=== PATIENT | female | born 1990 | race Two or more races ===

== ENCOUNTER → 2016-06-07 | Outpatient (CLI) | payer BC ==
[2016-06-07 16:01] LABS: ABSOLUTE EOSINOPHILS # (AUTO) 0.1 10^3/uL (0.0-0.6); ABSOLUTE LYMPHOCYTES (AUTO) 2.5 10^3/uL (0.5-4.7); ABSOLUTE MONOCYTES (AUTO) 0.5 10^3/uL (0.1-1.4); ABSOLUTE NEUT (AUTO) 4.5 10^3/uL (1.7-8.2); BASOPHILS % (AUTO) 0.5 % (0-2); EOSINOPHILS % (AUTO) 1.6 % (0-6); HEMATOCRIT 37.8 % (36.0-47.0); HEMOGLOBIN 12.6 g/dL (12.0-15.5); LYMPHOCYTES % (AUTO) 32.5 % (13-45); MEAN CORPUSCULAR HEMOGLOBIN 29.1 pg (27.0-33.4); MEAN CORPUSCULAR HGB CONC 33.3 g/dL (32.0-36.0); MEAN CORPUSCULAR VOLUME 87 fl (80-97); MONOCYTES % (AUTO) 6.2 % (3-13); RED BLOOD COUNT 4.33 10^6/uL (3.72-5.28); SEGMENTED NEUTROPHILS % (AUTO) 59.2 % (42-78); WHITE BLOOD COUNT 7.6 10^3/uL (4.0-10.5)
[2016-06-07 16:22] LABS: ANION GAP 11 (5-19); BLOOD UREA NITROGEN 17 mg/dL (7-20); CALCIUM 9.7 mg/dL (8.4-10.2); CARBON DIOXIDE 25 mmol/L (22-30); CHLORIDE 105 mmol/L (98-107); CREATININE RESULT 0.79 mg/dL (0.52-1.25); GLUCOSE 94 mg/dL (75-110); POTASSIUM 4.3 mmol/L (3.6-5.0); SODIUM 140.7 mmol/L (137-145)
[2016-06-09 07:41] LABS: DEHYDROEPIANDROSTERONE SULFATE 198.6 ug/dL (110.0-431.7)
== END ==
LOC: OD 14:08
PROVIDERS: ATTEND Obstetrics & Gynecology
DX: E28.2 Polycystic ovarian syndrome (principal); Z13.29 Encounter for screening for other suspected endocrine disorder; Z13.0 Encounter for screening for diseases of the blood and blood-forming organs and certain disorders involving the immune mechanism; Z13.1 Encounter for screening for diabetes mellitus
CPT/HCPCS: 36415; 80048; 82627; 83036; 84146; 84403; 84443; 85025

== ENCOUNTER → 2016-07-31 | Outpatient (CLI) | payer BC ==
[2016-08-02 11:56] LABS: PROGESTERONE 12.9 ng/mL (.)
== END ==
LOC: OD 13:06
PROVIDERS: ATTEND Obstetrics & Gynecology
DX: N97.0 Female infertility associated with anovulation (principal)
CPT/HCPCS: 36415; 84144; 84403

== ENCOUNTER → 2016-10-03 | Outpatient (CLI) | payer BC ==
[2016-10-03 11:48] LABS: ABSOLUTE EOSINOPHILS # (AUTO) 0.1 10^3/uL (0.0-0.6); ABSOLUTE LYMPHOCYTES (AUTO) 1.9 10^3/uL (0.5-4.7); ABSOLUTE MONOCYTES (AUTO) 0.5 10^3/uL (0.1-1.4); ABSOLUTE NEUT (AUTO) 7.2 10^3/uL (1.7-8.2); BASOPHILS % (AUTO) 0.1 % (0-2); HEMATOCRIT 37.2 % (36.0-47.0); HEMOGLOBIN 12.5 g/dL (12.0-15.5); HGB HCT DIFFERENCE 0.3; LYMPHOCYTES % (AUTO) 19.4 % (13-45); MEAN CORPUSCULAR HEMOGLOBIN 29.8 pg (27.0-33.4); MEAN CORPUSCULAR HGB CONC 33.6 g/dL (32.0-36.0); MEAN CORPUSCULAR VOLUME 89 fl (80-97); MONOCYTES % (AUTO) 5.3 % (3-13); RED CELL DISTRIBUTION WIDTH 13.2 % (11.5-14.0); SEGMENTED NEUTROPHILS % (AUTO) 74.2 % (42-78); WHITE BLOOD COUNT 9.8 10^3/uL (4.0-10.5)
[2016-10-03 13:12] LABS: ADD HIVPANEL? NO; HIV (1 AND 2) ANTIBODY NEGATIVE (NEGATIVE)
[2016-10-04 06:39] LABS: HEPATITIS C VIRUS AB <0.1 s/co ratio (0.0-0.9)
[2016-10-05 12:38] LABS: HGB A 96.5 % (94.0-98.0); HGB A2 2.7 % (0.7-3.1); HGB SOLUBILITY RESULT Negative (Negative)
[2016-10-07 12:37] LABS: CHLAMYDIA PREQUOT NAA Negative (Negative)
[2016-10-08 07:18] LABS: GONOCOCCUS PREQUOT (CYTO) NAA Negative (Negative)
== END ==
LOC: OD 10:07
PROVIDERS: ATTEND Advanced Practice Midwife
DX: Z34.01 Encounter for supervision of normal first pregnancy, first trimester (principal)
CPT/HCPCS: 36415; 83020; 84443; 85025; 86592; 86701; 86762; 86803; 86804; 86850; 86900; 86901; 87086; 87340; 87491; 87591; 88142

== ENCOUNTER → 2016-10-31 | Outpatient (CLI) | payer BC ==
[2016-11-09 14:56] LABS: DSR (BY AGE) 1 IN 998 (.); DSR (SECOND TRIMESTER) 1 IN 9196 (.); GESTATIONAL AGE BASED ON. As provided (.); HCG MOM 1 0.53 (.); HCG VALUE 1 23563 mIU/mL (.); OSBR RISK (1 IN) 10000 (.); T18RISK Not increased (.); UE3 MOM AFP 1.37 (.); UE3 VALUE AFP 1.19 ng/mL (.)
== END ==
LOC: OD 09:10
PROVIDERS: ATTEND Midwife
DX: Z36 Encounter for antenatal screening of mother (principal)
CPT/HCPCS: 36415; 82105; 82677; 84702; 86336

== ENCOUNTER → 2016-12-05 | Outpatient (CLI) | payer BC ==
--- NOTE | 2016-12-05 13:22 | WOMENS IMAGING REPORT ---
EXAM DESCRIPTION: U/S BREAST UNILAT LIMITED COMPLETED DATE/TIME: 12/05/2016 8:16 am REASON FOR STUDY: LUMP;N63 N63 UNSPECIFIED LUMP IN BREAST COMPARISON: Left breast ultrasound 03/28/2015, Left breast ultrasound 11/18/2015 TECHNIQUE: Real-time and static grayscale imaging performed of the left breast targeted to the area of clinical concern, along the inframammary fold. Selected color Doppler images recorded. LIMITATIONS: None. FINDINGS: Patient has left breast pain inferiorly, along the inframammary fold. Ultrasound of this area demonstrates no discrete cystic or solid lesions. No worrisome acoustic absorption. No focal f indings. Remainder of the left breast was not imaged IMPRESSION: Unremarkable ultrasound left breast inframammary fold. BIRAD: 1 Negative. RECOMMENDATION: RECOMMENDED FOLLOW-UP: Follow-up as clinically indicated. COMMENT: The [employer] (ACR) has developed recommendations for screening MRI of the breasts in certain patient populations, to be used in conjunction with mammography. Breast MRI s urveillance may be appropriate for women with more than 20% lifetime risk of developing breast cancer as determined by genetic testing, significant family history of the disease, or history of mantle r adiation for Hodgkins Disease. ACR Practice Guidelines 2008. TECHNICAL DOCUMENTATION: JOB ID: [id number] [employer]- All Rights Reserved
== END ==
LOC: WI 07:18
PROVIDERS: ATTEND Surgery
DX: N63 Unspecified lump in breast (principal)
CPT/HCPCS: 76642

== ENCOUNTER → 2016-12-21 | Outpatient (CLI) | payer BC ==
--- NOTE | 2016-12-21 10:40 | WOMENS IMAGING REPORT ---
EXAM DESCRIPTION: U/S BREAST UNILATERAL, COMPL COMPLETED DATE/TIME: 12/21/2016 8:35 am REASON FOR STUDY: UNSPECIFIED LUMP IN BREAST N63 UNSPECIFIED LUMP IN BREAST COMPARISON: 11/18/2015 TECHNIQUE: Real-time and static grayscale imaging performed of the right breast targeted to the area of clinical/mammographic concern. Selected color Doppler images recorded. LIMITATIONS: None. FINDINGS: Well-circumscribed hypoechoic nodules are stable or either decreased in size. No suspicio us findings. IMPRESSION: Benign fibroadenomas. BIRAD: 2 Benign findings. RECOMMENDATION: RECOMMENDED FOLLOW-UP: Per referring surgeon. COMMENT: The [employer] (ACR) has developed recommendations for screening MRI of the breasts in certain patient populations, to be used in conjunction with mammography. Breast MRI s urveillance may be appropriate for women with more than 20% lifetime risk of developing breast cancer as determined by genetic testing, significant family history of the disease, or history of mantle r adiation for Hodgkins Disease. ACR Practice Guidelines 2008. TECHNICAL DOCUMENTATION: JOB ID: [id number] [employer]- All Rights Reserved
--- NOTE | 2016-12-21 10:42 | WOMENS IMAGING REPORT ---
EXAM DESCRIPTION: U/S BREAST UNILATERAL, COMPL COMPLETED DATE/TIME: 12/21/2016 8:35 am REASON FOR STUDY: UNSPECIFIED LUMP IN BREAST N63 UNSPECIFIED LUMP IN BREAST COMPARISON: 11/08/2015 TECHNIQUE: Real-time and static grayscale imaging performed of the left breast targeted to the area of clinical/mammographic concern. Selected color Doppler images recorded. LIMITATIONS: None. FINDINGS: Well-circumscribed hypoechoic nodule in the 4-5 o'clock position measuring about 10 x 5 x 6 mm. Incomplete echogenic capsule. Much smaller similar-appearing lesion at 9 o'clock IMPRESSION: Benign fibroadenomas. BIRAD: 2 Benign findings. RECOMMENDATION: RECOMMENDED FOLLOW-UP: Follow-up as clinically indicated. COMMENT: The [employer] (ACR) has developed recommendations for screening MRI of the breasts in certain patient populations, to be used in conjunction with mammography. Breast MRI s urveillance may be appropriate for women with more than 20% lifetime risk of developing breast cancer as determined by genetic testing, significant family history of the disease, or history of mantle r adiation for Hodgkins Disease. ACR Practice Guidelines 2008. TECHNICAL DOCUMENTATION: JOB ID: [id number] [employer]- All Rights Reserved
== END ==
LOC: WI 07:39
PROVIDERS: ATTEND Surgery
DX: N63 Unspecified lump in breast (principal)
CPT/HCPCS: 76641

== ENCOUNTER 2017-01-21 13:28 | Outpatient (CLI) | payer BC ==
[2017-01-21 14:42] LABS: AMORPHOUS SEDIMENT,URINE TRACE /HPF; APPEARANCE,URINE CLOUDY; BILIRUBIN,URINE NEGATIVE (NEGATIVE); GLUCOSE, URINE 50 mg/dL (NEGATIVE); KETONES,URINE NEGATIVE (NEGATIVE); LEUKOCYTE ESTERASE,URINE NEGATIVE (NEGATIVE); NITRITE,URINE NEGATIVE (NEGATIVE); PROTEIN,URINE NEGATIVE (NEGATIVE); URINE SPECIFIC GRAVITY 1.013; UROBILINOGEN,URINE NEGATIVE mg/dL (<2.0)
[2017-01-21 14:52] LABS: URINE BARBITURATES SCREEN NEGATIVE; URINE METHADONE SCREEN NEGATIVE; URINE OPIATES LOW NEGATIVE; URINE PHENCYCLIDINE SCREEN NEGATIVE
--- NOTE | 2017-01-21 14:55 | RADIOLOGY REPORT (SQ) ---
EXAM DESCRIPTION: U/S OB LIMITED COMPLETED DATE/TIME: 01/21/2017 2:33 pm REASON FOR STUDY: R/O labor ( check for placenta placement) COMPARISON: None. TECHNIQUE: Limited transvaginal and transabdominal grayscale ultrasound for evaluation of specific r equested obstetrical parameters. LIMITATIONS: None. FINDINGS: CERVICAL LENGTH: 4.9 cm Closed. JENS: 16.9 cm. FHR: 149 beats per minute. PRESENTATION: Cephalic. OTHER: No other significant findings. IMPRESSION: LIMITED OBSTETRICAL ULTRASOUND WITH MEASURED PARAMETERS DELINEATED ABOVE. Trimester of : Third trimester - 28 weeks to delivery. TECHNICAL DOCUMENTATION: JOB ID: [id number] [employer]- All Rights Reserved
== END 2017-01-21 14:57 | disposition home or self-care (01) ==
LOC: LC 13:28
PROVIDERS: ATTEND Obstetrics & Gynecology
PROC: 4A1HXCZ Monitoring of Products of Conception, Cardiac Rate, External Approach (ICD-10-PCS; principal; 2017-01-21)
DX: O47.02 False labor before 37 completed weeks of gestation, second trimester (principal); Z3A.27 27 weeks gestation of pregnancy
CPT/HCPCS: 76815; 80307; 81001

== ENCOUNTER 2017-04-24 22:01 | Inpatient (IN) | payer BC ==
[2017-04-24 22:44] LABS: HEMATOCRIT 40.2 % (36.0-47.0); HEMOGLOBIN 13.6 g/dL (12.0-15.5); MEAN CORPUSCULAR HEMOGLOBIN 30.6 pg (27.0-33.4); MEAN CORPUSCULAR HGB CONC 33.9 g/dL (32.0-36.0); MEAN CORPUSCULAR VOLUME 90 fl (80-97); PLATELET COUNT 186 10^3/uL (150-450); RED BLOOD COUNT 4.46 10^6/uL (3.72-5.28); RED CELL DISTRIBUTION WIDTH 13.7 % (11.5-14.0); WHITE BLOOD COUNT 11.5 10^3/uL (4.0-10.5)
[2017-04-24] MEDS ORDERED: RINGERS SOLUTION,LACTATED 1,000 ML IV PRN (22:48)
[2017-04-24] MEDS ORDERED: DINOPROSTONE 10 MG VAGINAL INSERT.SR PV PRN (22:48)
[2017-04-24 23:01] LABS: APPEARANCE,URINE SLIGHTLY-CLOUDY; BILIRUBIN,URINE NEGATIVE (NEGATIVE); COLOR,URINE YELLOW; GLUCOSE, URINE NEGATIVE (NEGATIVE); KETONES,URINE NEGATIVE (NEGATIVE); LEUKOCYTE ESTERASE,URINE SMALL (NEGATIVE); NITRITE,URINE NEGATIVE (NEGATIVE); PROTEIN,URINE NEGATIVE (NEGATIVE); URINE SPECIFIC GRAVITY 1.013; UROBILINOGEN,URINE NEGATIVE mg/dL (<2.0)
[2017-04-24 23:16] LABS: URINE AMPHETAMINES SCREEN NEGATIVE; URINE BARBITURATES SCREEN NEGATIVE; URINE BENZODIAZEPINES SCREEN NEGATIVE; URINE COCAINE SCREEN NEGATIVE; URINE MARIJUANA (THC) SCREEN NEGATIVE; URINE METHADONE SCREEN NEGATIVE; URINE PHENCYCLIDINE SCREEN NEGATIVE
--- NOTE | 2017-04-25 01:04 | RADIOLOGY REPORT (SQ) ---
EXAM DESCRIPTION: U/S PROFILE W/O STRESS CLINICAL HISTORY: 26 years, Female, BPP non reactive NST COMPARISON: None. LIMITATIONS: None. FINDINGS: breathing: Zero posture and tone: Two movement: Two Qualitative amniotic fluid: Two JENS: 13.9 cm FHR: 153 bpm Presentation: Vertex IMPRESSION: Total score: Six of eight 2010 [facility] [employer]- All Rights Reserved
[2017-04-25] MEDS ORDERED: DINOPROSTONE 10 MG VAGINAL INSERT.SR ONE (01:48)
[2017-04-25] MEDS ORDERED: EPHEDRINE SULFATE INJ 50 MG/1 ML AMPULE ONE (08:37)
[2017-04-25] MEDS ORDERED: FENTANYL/BUPIVACAINE/NS/PF 200 MCG/100 ML RTUINJ EPI ONE (08:37)
[2017-04-25] MEDS ORDERED: BUPIVACAINE HCL 0.25 % INJ/PF (2.5 MG/1 ML) 30 ML VIAL ONE (08:37)
[2017-04-25] MEDS ORDERED: OXYTOCIN/NORMAL SALINE 20 UNIT/1,000 ML RTUINJ IV PRN (13:17)
--- NOTE | 2017-04-25 13:17 | L&D Progress Notes ---
PROGRESS NOTES Datetime Report Generated by CPN: 04/25/2017 13:17 PROGRESS NOTE Impression: Reassuring Heart Rate Procedures: Artificial ROM; Sterile Vag Exam Plan: Induction Vital Signs : Reviewed Comment: Much more comfortable with epidiural AROM, mec fluid CAT 2 fhts resolved to Cat 1 with nursing interventions Start pitocin per protocol VAGINAL EXAM Dilatation: 4 Dilatation: 0 Effacement: 90 Station: 0 Contractions: 2-4 Contractions: irreg. MEMBRANES Membranes: Ruptured Membranes: Intact Amniotic Fluid Color: Meconium, Particulate FETUS A FHR - Baseline: 135 Monitoring: External US Variability: Moderate 6-25bpm Accelerations: 15X15 Decelerations: None FHR Category: Category I Estimated Weight (gm): 3900 Presentation: Vertex SIGNATURE SIGNATURE: [id number] Assignment: Madie Anton MD Signature: with User ID: [email or web address] : with User ID: [email or web address]
[2017-04-25] MEDS ORDERED: MISOPROSTOL 0.2 MG TABLET ONE (13:20)
[2017-04-25] MEDS ORDERED: OXYTOCIN/NORMAL SALINE 20 UNIT/1,000 ML RTUINJ ONE (13:21)
[2017-04-25] MEDS ORDERED: LIDOCAINE 1% INJ-PF (10 MG/ML) 30 ML SDV ONE (13:21)
--- NOTE | 2017-04-25 13:55 | L&D Progress Notes ---
PROGRESS NOTES Datetime Report Generated by CPN: 04/25/2017 13:55 PROGRESS NOTE Procedures: Scalp Electrode; Sterile Vag Exam Plan: Continue Present Management Comment: Decel down to the 80's for approx 4 min, resolved with position change FSE placed Continue to monitor FETUS C SIGNATURE: [id number] Assignment: Madie Anton MD Signature: with User ID: [email or web address] : with User ID: [email or web address]
[2017-04-25] MEDS ORDERED: NA PHOS,M-B/NA PHOS,DI-BA (ADULT) 133 ML ENEMA PR PRN (18:13)
[2017-04-25] MEDS ORDERED: DIBUCAINE 1% OINTMENT 28 GM TP PRN (18:13)
[2017-04-25] MEDS ORDERED: DIPHENHYDRAMINE HCL 25 MG CAPSULE PO PRN (18:13)
[2017-04-25] MEDS ORDERED: ACETAMINOPHEN 650 MG SUPP.RECT PR PRN (18:13)
[2017-04-25] MEDS ORDERED: GLYCERIN/WITCH HAZEL LEAF 1 EACH MED..PAD TP PRN (18:13)
[2017-04-25] MEDS ORDERED: MEASLES,MUMPS&RUBELLA VACC/PF 0.5 ML VIAL SUBCUT PRN (18:13)
[2017-04-25] MEDS ORDERED: MAGNESIUM HYDROXIDE SUSP 30 ML UDCUP PO PRN (18:13)
[2017-04-25] MEDS ORDERED: OXYTOCIN/NORMAL SALINE 1,000 ML IV PRN (18:13)
[2017-04-25] MEDS ORDERED: PROMETHAZINE HCL INJ 25 MG/1 ML VIAL IV PRN (18:13)
[2017-04-25] MEDS ORDERED: BENZOCAINE/MENTHOL AEROSOL SPRAY 56 ML TOP PRN (18:13)
[2017-04-25] MEDS ORDERED: DIPH/PERTUSS(ACELL)/TETANUS VAC/PF 0.5 ML SYR (>=10YO) IM PRN (18:13)
[2017-04-25] MEDS ORDERED: PSEUDOEPHEDRINE HCL 30 MG TABLET PO PRN (18:13)
[2017-04-25] MEDS ORDERED: IBUPROFEN 800 MG TABLET ONE (18:50)
[2017-04-25] MEDS ORDERED: ACETAMINOPHEN WITH CODEINE #3 TABLET PO PRN ×2 (20:08→20:09)
[2017-04-25] MEDS ORDERED: PROMETHAZINE HCL 25 MG SUPP.RECT PR PRN (20:18)
[2017-04-25] MEDS ORDERED: PROMETHAZINE HCL 25 MG TABLET PO PRN (20:19)
--- NOTE | 2017-04-25 20:53 | Delivery Summary ---
Del Sum A-C Datetime Report Generated by CPN: 04/25/2017 20:52 DELIVERY PERSONNEL DELIVERY PERSONNEL: [id number] Delivery Doctor:: Lexis Terry MD Labor and Delivery Nurse:: Lucia Hutton RNcheese tester Nurse:: Rose Pichardo RN Nursery Nurse:: Davida Panchal RN Radio Assembler/MED SPEC: Lydia Winter Radio Assembler/MED SPEC: Stephanie Du, GLASS FRAME FITTER MATERNAL INFORMATION Delivery Anesthesia: Epidural Medications After Delivery: Pitocin Bolus-Please Comment; Pitocin Drip 20 Units/1000ml NSS Estimated Blood Loss (ml): 200 Maternal Complications: None LABOR SUMMARY EDC: 04/17/2017 00:00 No. Babies in Womb: 1 Attempted: No Labor Anesthesia: Epidural LABOR INFORMATION Reason for Induction: Post Dates Onset of Labor: 04/25/2017 15:00 Complete Dilatation: 04/25/2017 16:20 Cervical Ripening Agents: Cervidil Oxytocin: Induction Group B Beta Strep: negative Antibiotics # of Doses: 0 Steroids Given: None Reason Steroids Not Administered: Not Applicable MEMBRANES Membranes Rupture Method: Artificial Rupture of Membranes: 04/25/2017 13:10 Length of Rupture (hr): 4.80 Amniotic Fluid Color: Moderate Meconium Amniotic Fluid Amount: Small Amniotic Fluid Odor: Normal STAGES OF LABOR Stage 1 hr: 1 Stage 1 min: 20 Stage 2 hr: 1 Stage 2 min: 38 Stage 3 hr: 0 Stage 3 min: 7 Total Time in Labor hr: 3 Total Time in Labor min: 5 VAGINAL DELIVERY Episiotomy: None Laceration #1: None Laceration Extension #1: N/A Laceration Repair: Not Applicable Sponge Count Correct: N/A Sharps Count Correct: N/A CSECTION DELIVERY Primary Indication: N/A Secondary Indication: N/A CSection Urgency: N/A CSection Incidence: N/A Labor: N/A Elective: N/A CSection Incision: N/A BABY A INFORMATION Delivery Date/Time: 04/25/2017 17:58 Method of Delivery: Vaginal Born in Route : No : N/A Forceps: N/A Vacuum Extraction: N/A Shoulder Dystocia : No PRESENTATION/POSITION BABY A Presentation: Cephalic Cephalic Presentation: Vertex Vertex Position: Right Occipital Anterior Breech Presentation: N/A PLACENTA INFORMATION BABY A Placenta Delivery Time : 04/25/2017 18:05 Placenta Method of Delivery: Spontaneous Placenta Status: Delivered SCORES BABY A Heart Rate 1 min: >100 bpm Resp Effort 1 min: Good Cry Reflex Irritability 1 min: Cough or Sneeze or Pulls Away Muscle Tone 1 min: Active Motion Color 1 min: Blue/Pale Resuscitation Effort 1 min: Tactile Stimulation SCORE 1 MIN: 8 Heart Rate 5 min: >100 bpm Resp Effort 5 min: Good Cry Reflex Irritability 5 min: Cough or Sneeze or Pulls Away Muscle Tone 5 min: Active Motion Color 5 min: Body [place], Extremities Blue Resuscitation Effort 5 min: Tactile Stimulation SCORE 5 MIN: 9 INFANT INFORMATION BABY A Gestational Age at Delivery: 41.1 Gestational Status: Late Term- 41- 41.6 Weeks Infant Outcome : Liveborn Infant Condition : Stable Sex: Male IDENTIFICATION BABY A Verification Date/Time: 04/25/2017 18:53 ID Band Number: [id number] Mother's Name Verified: Yes Infant RN Verifying Infant: Ariadna Terry, RN, C. Anni, RN WEIGHT/LENGTH BABY A Birthweight (gm): 4080 Infant Weight (lb): 9 Infant Weight (oz): 0 Infant Length (in): 23.00 Length (cm): 58.42 CORD INFORMATION BABY A No. Cord Vessels: 3 Nuchal Cord : N/A Cord Blood Taken: Yes-For Storage (Mom's Blood type +) Suction: None ASSESSMENT BABY A Infant Complications: Multiple Late Decels; Multiple Variable Decels Physical Findings at Delivery: Within Normal Limits Infant Respirations: Appears Normal Skin to Skin: Yes Skin to Skin Time (min): 45 Gate Attendant/ALS Called : No Infant Care By: Cecil PANCHAL RN Transferred To: Remains with Mother BABY B INFORMATION : N/A SIGNATURES Signature: with User ID: [email or web address]
--- NOTE | 2017-04-25 20:55 | Admission Physical ---
Datetime Report Generated by CPN: 04/25/2017 20:55 CURRENT ADMISSION Hx Assessment: The History has been Reviewed and is Current Chief Complaint: Scheduled Induction of Labor Indication for Induction: Post Dates Indication for Induction: Term, Intrauterine ; No Active Labor; Intact Membranes; Induction of Labor Admit Plan: Admit to Unit; Initiate Labor Induction Protocol ALLERGIES Medication Allergies: Yes Medication Allergies: cefaclor/Hives (04/24/2017) Medication Allergies: cefaclor/Hives (04/03/2013) Latex: No Latex Allergies OBSTETRICAL HISTORY EDC: 04/17/2017 00:00 : 1 Para: 0 Term: 0 : 0 SAB: 0 IAB: 0 Ectopic: 0 Livin Cesareans: 0 VBACs: 0 Multiple Births: 0 Gestational Diabetes: No Rh Sensitization: No Incompetent Cervix: No KRISH: No Infertility: No ART Treatment: Yes Uterine Anomaly: No IUGR: No Hx Previous C/S: No Macrosomia: No Hx Loss/Stillborn: No PIH: No Hx : No Placenta Previa/Abruption: No Depression/PP Depression: No PTL/PROM: No Post Hemorrhage: No Current Procedures: Ultrasound; NST Obstetrical History Comments: G1: Current SEE RECORDS Alcohol: No Marijuana : No Cocaine: No Other Illicit Drugs: No Cigarettes: Never Smoker. 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 Surgery: No Heart Disease: No Hosp/Surgery: Yes Autoimmune Disorder: No Anesthetic Complications: No Kidney Disease: No Abnormal Pap Smear: No Neuro/Epilepsy: No Psychiatric Disorders: No Other Medical Diseases: No Hepatitis/Liver Disease: No Significant Family History: No Varicosities/Phlebitis: No Trauma/Violence : No Thyroid Dysfunction: No Medical History Comments: appy 2002 wisdom teeth clomid INFECTIOUS HISTORY Gonorrhea: No Genital Herpes: No Chlamydia: No Tuberculosis: No Syphilis: No Hepatitis: No HIV/AIDS Exposure: No Rash or Viral Illness: No HPV: No PHYSICAL EXAM General: Normal HEENT: Normal Neurologic: Normal Thyroid: Deferred Heart: Normal Lungs: Normal Breast: Normal Back: Normal Abdomen: Normal Genitourinary Exam: Normal Extremities: Normal DTRs: Normal Pelvic Type: Adequate Vital Signs: Reviewed VAGINAL EXAM Dilatation: 4 Dilatation: 0 Effacement: 90 Station: 0 Contraction Comments: 2-4 Contraction Comments: irreg. MEMBRANES Membranes: Ruptured Membranes: Intact Amniotic Fluid Color: Meconium, Particulate FETUS A EGA: 41.1 Monitoring: External US FHR- Baseline: 135 Variability: Moderate 6-25bpm Decelerations: Variable FHR Category: Category II Estimated Weight (gm): 3900 Presentation: Vertex Admit Comment: IOL postdates GBS neg NR NST BPP 6/8 over night, Dr. Weiss ok'd cervidil Uncomplicated course PLANS FOR LABOR AND DELIVERY Labor and Delivery: None Pain Management: Epidural Feeding Preference: Breast Benefit of Breast Feed Discussed: Yes Circumcision: Yes INFORMED CONSENT Assignment: Madie Anton MD Signature: with User ID: Bright : with User ID: Bright
[2017-04-25] MEDS: IBUPROFEN 800 MG TABLET PO SCH (21:32)
[2017-04-25] MEDS: FAMOTIDINE 20 MG TABLET PO SCH (21:32)
[2017-04-25] MEDS ORDERED: ZOLPIDEM TARTRATE 5 MG TABLET PO PRN (22:00)
[2017-04-26] MEDS: IBUPROFEN 800 MG TABLET PO SCH ×2 (05:56→14:17)
[2017-04-26 08:06] LABS: HEMATOCRIT 33.6 % (36.0-47.0); MEAN CORPUSCULAR HEMOGLOBIN 30.8 pg (27.0-33.4); MEAN CORPUSCULAR HGB CONC 33.9 g/dL (32.0-36.0); MEAN CORPUSCULAR VOLUME 91 fl (80-97); PLATELET COUNT 160 10^3/uL (150-450); RED CELL DISTRIBUTION WIDTH 13.7 % (11.5-14.0); WHITE BLOOD COUNT 14.2 10^3/uL (4.0-10.5)
[2017-04-26 08:08] LABS: HEMOGLOBIN 11.4 g/dL (12.0-15.5)
[2017-04-26] MEDS: FAMOTIDINE 20 MG TABLET PO SCH (10:02)
[2017-04-26] MEDS: SENNOSIDES/DOCUSATE 8.6-50 MG 1 EACH TABLET PO SCH (10:02)
[2017-04-26] MEDS: PRENATAL VITAMIN W DHA CAPSULE PO SCH (10:02)
[2017-04-26] MEDS: FERROUS SULFATE 325 MG TABLET PO SCH ×2 (10:02→19:01)
[2017-04-26] MEDS: DOCUSATE SODIUM 100 MG CAPSULE PO SCH ×2 (10:03→19:01)
--- NOTE | 2017-04-26 12:54 | PDOC PROGRESS REPORT ---
Subjective-OB Subjective: Post Delivery Day: 26 year old. Denies any needs at this time reports -still having trouble with latch, bleeding slowing, pain controlled wit current meds, tolerating diet. Physical Exam (OB) Vital Signs: Temp Pulse Resp BP Pulse Ox 98.3 F 83 14 113/66 96 04/26/17 07:37 04/26/17 07:37 04/26/17 07:37 04/26/17 07:37 04/26/17 07:37 Intake & Output 04/25/17 04/26/17 04/27/17 06:59 06:59 06:59 Weight 78.5 kg - Abdomen Description: Soft Hernia Present: No Fundal Description: Firm, Midline Fundal Height: u/u - u/2 - Abdominal Tenderness: Nontender - Extremities Lower extremities: Luis E's sign - neg Calf: Normal, Nontender Objective-Diagnostic Laboratory: 04/26/17 07:22 04/26/17 07:22 WBC 14.2 H RBC 3.70 L Hgb 11.4 L D Hct 33.6 L MCV 91 MCH 30.8 MCHC 33.9 RDW 13.7 Plt Count 160
[2017-04-27] MEDS: FAMOTIDINE 20 MG TABLET PO SCH ×2 (05:43→09:06)
[2017-04-27] MEDS: IBUPROFEN 800 MG TABLET PO SCH ×2 (05:43→06:16)
[2017-04-27] MEDS: FERROUS SULFATE 325 MG TABLET PO SCH (09:06)
[2017-04-27] MEDS: SENNOSIDES/DOCUSATE 8.6-50 MG 1 EACH TABLET PO SCH (09:06)
[2017-04-27] MEDS: DOCUSATE SODIUM 100 MG CAPSULE PO SCH (09:06)
[2017-04-27] MEDS: PRENATAL VITAMIN W DHA CAPSULE PO SCH (09:06)
--- NOTE | 2017-04-27 09:09 | PDOC DISCHARGE SUMMARY ---
Final Diagnosis Discharge Date: 04/27/17 - Final Diagnosis (1) Acute blood loss anemia Is this a current diagnosis for this admission?: Yes (2) Vaginal delivery Is this a current diagnosis for this admission?: Yes Discharge Data - Discharge Medication Prescriptions: Docusate Sodium [Colace 100 mg Capsule] 100 mg PO BID #60 capsule Ibuprofen [Motrin 800 mg Tablet] 800 mg PO Q8 #60 tablet Home Medications: Lansoprazole [Prevacid 24Hr] 15 mg PO DAILY 04/24/17 Pnv No.95/Ferrous Fum/Folic AC [ Multivitamin Tablet] 1 each PO DAILY Docusate Sodium [Colace 100 mg Capsule] 100 mg PO BID #60 capsule 04/27/17 Ibuprofen [Motrin 800 mg Tablet] 800 mg PO Q8 #60 tablet 04/27/17 Gestational Age: 41.1 Reason(s) for Admission: Induction of Labor Procedures: NST Intrapartum Procedure(s): Spontaneous Vaginal Delivery - Data Baby 1 Male at 1 minute: 8 at 5 minutes: 9 Weight: 4.082 kg Home with Mother: No - baby in nicu Complications: Yes - Diagnosis Test Laboratory: Temp Pulse Resp BP Pulse Ox 97.9 F 75 18 116/63 100 04/27/17 08:52 04/27/17 08:52 04/27/17 08:52 04/26/17 19:41 04/27/17 08:52 04/24/17 04/24/17 04/26/17 22:17 22:35 07:22 RBC 4.46 3.70 L Hgb 13.6 11.4 L D Hct 40.2 33.6 L Urine Opiates Screen NEGATIVE - Discharge information/Instructions Discharge Activity: Activity As Tolerated, No Lifting Over 10 Pounds, Pelvic Rest, No tub bath Discharge Diet: Regular Disposition: HOME, SELF-CARE Follow up with: [facility] in: 4, Weeks
[2017-04-27 10:39] VITALS: BP 120/69
== END 2017-04-27 12:32 | disposition home or self-care (01) | DRG 775 ==
LOC: LR 22:01 → 2S 04-25 20:37
PROVIDERS: ADMIT Obstetrics & Gynecology; ATTEND Obstetrics & Gynecology
PROC: 4A1HXCZ Monitoring of Products of Conception, Cardiac Rate, External Approach (ICD-10-PCS; 2017-04-24)
PROC: 10E0XZZ Delivery of Products of Conception, External Approach (ICD-10-PCS; principal; 2017-04-25)
PROC: 4A1H7CZ Monitoring of Products of Conception, Cardiac Rate, Via Natural or Artificial Opening (ICD-10-PCS; 2017-04-25)
PROC: 10H073Z Insertion of Monitoring Electrode into Products of Conception, Via Natural or Artificial Opening (ICD-10-PCS; 2017-04-25)
PROC: 10907ZC Drainage of Amniotic Fluid, Therapeutic from Products of Conception, Via Natural or Artificial Opening (ICD-10-PCS; 2017-04-25)
PROC: 3E0234Z Introduction of Serum, Toxoid and Vaccine into Muscle, Percutaneous Approach (ICD-10-PCS; 2017-04-27)
DX: O48.0 Post-term pregnancy (principal); D62 Acute posthemorrhagic anemia; O77.0 Labor and delivery complicated by meconium in amniotic fluid; O99.02 Anemia complicating childbirth; O76 Abnormality in fetal heart rate and rhythm complicating labor and delivery; Z3A.41 41 weeks gestation of pregnancy; Z37.0 Single live birth; Z23 Encounter for immunization; Z90.49 Acquired absence of other specified parts of digestive tract
CPT/HCPCS: 36415; 76819; 80307; 81005; 85027; 86592; 86850; 86900; 86901; 90715; J2590; J3490

== ENCOUNTER → 2018-04-02 | Outpatient (CLI) | payer BC ==
[2018-04-02 12:16] LABS: ABSOLUTE EOSINOPHILS # (AUTO) 0.2 10^3/uL (0.0-0.6); ABSOLUTE LYMPHOCYTES (AUTO) 2.2 10^3/uL (0.5-4.7); ABSOLUTE MONOCYTES (AUTO) 0.6 10^3/uL (0.1-1.4); ABSOLUTE NEUT (AUTO) 8.6 10^3/uL (1.7-8.2); BASOPHILS % (AUTO) 0.2 % (0-2); EOSINOPHILS % (AUTO) 1.9 % (0-6); HEMATOCRIT 36.2 % (36.0-47.0); HEMOGLOBIN 12.2 g/dL (12.0-15.5); LYMPHOCYTES % (AUTO) 18.7 % (13-45); MEAN CORPUSCULAR HEMOGLOBIN 28.8 pg (27.0-33.4); MEAN CORPUSCULAR HGB CONC 33.7 g/dL (32.0-36.0); MEAN CORPUSCULAR VOLUME 86 fl (80-97); MONOCYTES % (AUTO) 5.2 % (3-13); PLATELET COUNT 302 10^3/uL (150-450); RED BLOOD COUNT 4.23 10^6/uL (3.72-5.28); RED CELL DISTRIBUTION WIDTH 12.8 % (11.5-14.0); TOTAL CELLS COUNTED % (AUTO) 100 %; WHITE BLOOD COUNT 11.6 10^3/uL (4.0-10.5)
[2018-04-02 13:17] LABS: RUBELLA INTERPRETATION POSITIVE
[2018-04-03 06:37] LABS: HEPATITIS C VIRUS AB <0.1 s/co ratio (0.0-0.9)
[2018-04-03 07:08] LABS: HEPATITS B SURFACE ANTIGEN Negative (Negative)
[2018-04-03 14:38] LABS: HGB A 97.4 % (96.4-98.8); HGB A2 2.6 % (1.8-3.2); HGB SOLUBILITY RESULT Negative (Negative)
== END ==
LOC: OD 11:18
PROVIDERS: ATTEND Specialist
DX: Z13.0 Encounter for screening for diseases of the blood and blood-forming organs and certain disorders involving the immune mechanism (principal); Z13.29 Encounter for screening for other suspected endocrine disorder; Z11.3 Encounter for screening for infections with a predominantly sexual mode of transmission
CPT/HCPCS: 36415; 83020; 84439; 84443; 85025; 86592; 86701; 86762; 86803; 86804; 86850; 86900; 86901; 87086; 87340; 87491; 87591

== ENCOUNTER → 2018-04-30 | Outpatient (CLI) | payer BC | LOC: OD 08:51 | PROVIDERS: ATTEND Advanced Practice Midwife | DX: Z36.82 Encounter for antenatal screening for nuchal translucency (principal) | CPT/HCPCS: 36415; 84163; 84702; 86336 ==

== ENCOUNTER → 2018-05-28 | Outpatient (CLI) | payer BC | LOC: OD 08:48 | PROVIDERS: ATTEND Advanced Practice Midwife | DX: Z36.89 Encounter for other specified antenatal screening (principal) | CPT/HCPCS: 36415; 82105 ==

== ENCOUNTER → 2018-08-13 | Outpatient (CLI) | payer BC | LOC: OD 09:19 | PROVIDERS: ATTEND Midwife | DX: Z11.59 Encounter for screening for other viral diseases (principal); Z11.3 Encounter for screening for infections with a predominantly sexual mode of transmission; Z11.4 Encounter for screening for human immunodeficiency virus [HIV] | CPT/HCPCS: 36415; 86592; 86701 ==

== ENCOUNTER 2018-11-05 16:13 | Outpatient (CLI) | payer BC ==
--- NOTE | 2018-11-05 16:57 | Non Stress Test Report ---
Non Stress Test Datetime Report Generated by CPN: 11/05/2018 16:57 DEMOGRAPHIC EGA NST: 39.1 INDICATION Indication for Study: Ordered by Provider VITAL SIGNS Temperature - NST: 98.7 Pulse - NST: 75 RESP - NST: 16 NBPSYS NST: 103 NBPDIA NST: 57 MONITORING Monitor Explained: Monitor Explained; Test Explained; Patient Verbalized Understanding Time on Monitor: 11/05/2018 16:22 Time off Monitor: 11/05/2018 16:51 NST Duration: 29 NST INTERVENTIONS NST Interventions: None Physician Notified NST: Jesus Finn CNM BABY A: [id number] Movement : Present Contraction Frequency : irregular FHR Baseline : 120 Accelerations : 15X15 Decelerations : None Variability : Moderate 6-25bpm NST Review: Meets Criteria for Reactive NST NST Review and Verified By : Rachel Hutton RN NST Results: Reactive NST COMMENTS NST Comments: CNM on unit reviewing FHT strip NST REPORT Report Trigger: Send Report
== END 2018-11-05 16:54 | disposition home or self-care (01) ==
LOC: LC 16:13
PROVIDERS: ATTEND Student in an Organized Health Care Education/Training Program
PROC: 4A1HXCZ Monitoring of Products of Conception, Cardiac Rate, External Approach (ICD-10-PCS; principal; 2018-11-05)
DX: Z36.89 Encounter for other specified antenatal screening (principal); Z3A.39 39 weeks gestation of pregnancy
CPT/HCPCS: 59025

== ENCOUNTER 2018-11-11 06:50 | Inpatient (IN) | payer BC ==
[2018-11-11] MEDS ORDERED: OXYTOCIN/NORMAL SALINE 20 UNIT/1,000 ML RTUINJ IV PRN ×2 (07:37→13:54)
[2018-11-11] MEDS ORDERED: RINGERS SOLUTION,LACTATED 1,000 ML IV PRN ×2 (07:37→13:54)
[2018-11-11] MEDS ORDERED: RINGERS SOLUTION,LACTATED 300 ML IV ONE (07:37)
[2018-11-11 07:41] LABS: APPEARANCE,URINE SLIGHTLY-CLOUDY; BILIRUBIN,URINE NEGATIVE (NEGATIVE); COLOR,URINE YELLOW; GLUCOSE, URINE NEGATIVE (NEGATIVE); KETONES,URINE NEGATIVE (NEGATIVE); LEUKOCYTE ESTERASE,URINE MODERATE (NEGATIVE); NITRITE,URINE NEGATIVE (NEGATIVE); PROTEIN,URINE NEGATIVE (NEGATIVE); URINE SPECIFIC GRAVITY 1.017; UROBILINOGEN,URINE NEGATIVE mg/dL (<2.0)
[2018-11-11 08:00] LABS: URINE AMPHETAMINES SCREEN NEGATIVE; URINE BARBITURATES SCREEN NEGATIVE; URINE BENZODIAZEPINES SCREEN NEGATIVE; URINE COCAINE SCREEN NEGATIVE; URINE MARIJUANA (THC) SCREEN NEGATIVE; URINE METHADONE SCREEN NEGATIVE; URINE PHENCYCLIDINE SCREEN NEGATIVE
[2018-11-11] MEDS ORDERED: MISOPROSTOL 0.2 MG TABLET ONE (08:05)
[2018-11-11] MEDS ORDERED: LIDOCAINE 1% INJ-PF (10 MG/ML) 30 ML SDV ONE (08:05)
[2018-11-11] MEDS ORDERED: OXYTOCIN 10 UNIT/ML VIAL ONE ×2 (08:05→12:50)
[2018-11-11] MEDS ORDERED: OXYTOCIN/NORMAL SALINE 20 UNIT/1,000 ML RTUINJ ONE ×2 (08:06→12:50)
[2018-11-11 08:26] LABS: ABSOLUTE EOSINOPHILS # (AUTO) 0.1 10^3/uL (0.0-0.6); ABSOLUTE LYMPHOCYTES (AUTO) 1.9 10^3/uL (0.5-4.7); ABSOLUTE MONOCYTES (AUTO) 0.7 10^3/uL (0.1-1.4); ABSOLUTE NEUT (AUTO) 5.8 10^3/uL (1.7-8.2); BASOPHILS % (AUTO) 0.3 % (0-2); EOSINOPHILS % (AUTO) 0.9 % (0-6); HEMATOCRIT 35.4 % (36.0-47.0); HEMOGLOBIN 11.8 g/dL (12.0-15.5); LYMPHOCYTES % (AUTO) 22.2 % (13-45); MEAN CORPUSCULAR HEMOGLOBIN 30.3 pg (27.0-33.4); MEAN CORPUSCULAR HGB CONC 33.3 g/dL (32.0-36.0); MEAN CORPUSCULAR VOLUME 91 fl (80-97); MONOCYTES % (AUTO) 8.2 % (3-13); PLATELET COUNT 176 10^3/uL (150-450); RED BLOOD COUNT 3.89 10^6/uL (3.72-5.28); RED CELL DISTRIBUTION WIDTH 13.9 % (11.5-14.0); SEGMENTED NEUTROPHILS % (AUTO) 68.4 % (42-78); TOTAL CELLS COUNTED % (AUTO) 100 %; WHITE BLOOD COUNT 8.4 10^3/uL (4.0-10.5)
--- NOTE | 2018-11-11 11:07 | Admission Physical ---
Datetime Report Generated by CPN: 11/11/2018 11:07 CURRENT ADMISSION Chief Complaint: Uterine Contractions; Scheduled Induction of Labor Indication for Induction: Post Dates; Other Indication for Induction- Other: previous infant at 9 lbs, excessive wt gain Admit Impression : Term, Intrauterine ; No Active Labor; Induction of Labor Admit Plan: Admit to Unit; Initiate Labor Induction Protocol ALLERGIES Medication Allergies: Yes Medication Allergies: cefaclor/Hives (11/11/2018) Latex: No Latex Allergies Food Allergies: none Environmental Allergies: none OBSTETRICAL HISTORY EDC: 11/11/2018 00:00 : 2 Para: 1 Livin Gestational Diabetes: No Rh Sensitization: No Incompetent Cervix: No KRISH: No Infertility: Yes ART Treatment: No Uterine Anomaly: No IUGR: No Hx Previous C/S: No Macrosomia: No Hx Loss/Stillborn: No PIH: No Hx : No Placenta Previa/Abruption: No Depression/PP Depression: No PTL/PROM: No Post Hemorrhage: No Current Procedures: Ultrasound Obstetrical History Comments: G1- 2017 9# 0 oz G2- current high wt gain SEE RECORDS Alcohol: No Marijuana : No Cocaine: No Other Illicit Drugs: No Cigarettes: Never Smoker. [id number] MEDICAL HISTORY Diabetes: No Blood Transfusion: No Pulmonary Disease (Asthma, TB): No Breast Disease: No Hypertension: No Party Host/Hostess Surgery: No Heart Disease: No Hosp/Surgery: Yes Autoimmune Disorder: No Anesthetic Complications: No Kidney Disease: No Abnormal Pap Smear: No Neuro/Epilepsy: No Psychiatric Disorders: No Other Medical Diseases: No Hepatitis/Liver Disease: No Significant Family History: No Varicosities/Phlebitis: No Trauma/Violence : No Thyroid Dysfunction: No Medical History Comments: childbirth, hospitalized for panic attack in 2009, wisdom teeth 2009, appendectomy 2015 left breast mass, anxiety, PCOS, bladder infection, INFECTIOUS HISTORY Gonorrhea: No Genital Herpes: No Chlamydia: No Tuberculosis: No Syphilis: No Hepatitis: No HIV/AIDS Exposure: No Rash or Viral Illness: No HPV: No PHYSICAL EXAM General: Normal HEENT: Normal Neurologic: Normal Thyroid: Normal Heart: Normal Lungs: Normal Breast: Normal Back: Normal Abdomen: Normal Genitourinary Exam: Normal Extremities: Normal DTRs: Normal Pelvic Type: Adequate Vital Signs: Reviewed; Within Normal Limits VAGINAL EXAM Dilatation: 2 Effacement: 50 Station: -2 MEMBRANES Pooling: Negative Membranes: Intact FETUS A EGA: 40.0 Monitoring: External US FHR- Baseline: 140 Variability: Moderate 6-25bpm Accelerations: 15X15 Decelerations: None FHR Category: Category I Estimated Weight (gm): 4000 Presentation: Vertex PLANS FOR LABOR AND DELIVERY Labor and Delivery: None Pain Management: Epidural Feeding Preference: Breast Benefit of Breast Feed Discussed: Yes Circumcision: Yes INFORMED CONSENT Signature: with User ID: [email or web address]
[2018-11-11] MEDS ORDERED: PHENYLEPHRINE HCL INJ/PF 10 MG/1 ML SDV ONE (11:28)
[2018-11-11] MEDS ORDERED: FENTANYL CITRATE INJ/PF 100 MCG/2 ML AMPUL ONE (11:28)
[2018-11-11] MEDS ORDERED: EPHEDRINE SULFATE INJ 50 MG/1 ML AMPULE ONE (11:29)
[2018-11-11] MEDS ORDERED: BUPIVACAINE HCL 0.25 % INJ/PF (2.5 MG/1 ML) 30 ML VIAL ONE (11:30)
[2018-11-11] MEDS ORDERED: FENTANYL/BUPIVACAINE/NS/PF 300 MCG/150 ML RTUINJ EPI ONE (11:30)
[2018-11-11] MEDS ORDERED: LIDOCAINE 2% INJ-PF (20 MG/ML) 10 ML AMPUL ONE ×2 (12:46→12:54)
[2018-11-11] MEDS ORDERED: CITRIC ACID/SODIUM CITRATE ORAL SOLN 15 ML UDCUP ONE (12:47)
[2018-11-11] MEDS ORDERED: AZITHROMYCIN INJ 500 MG VIAL IV ONE (12:47)
[2018-11-11] MEDS ORDERED: ONDANSETRON HCL INJ/PF 4 MG/2 ML SDV ONE (12:50)
[2018-11-11] MEDS ORDERED: MORPHINE SULFATE 10 MG/ML INJ ONE ×2 (12:50→14:35)
[2018-11-11] MEDS ORDERED: MIDAZOLAM 2 MG/2 ML INJ ONE (12:50)
[2018-11-11] MEDS ORDERED: ACETAMINOPHEN 325 MG TABLET PO PRN (13:54)
[2018-11-11] MEDS ORDERED: PROMETHAZINE HCL INJ 25 MG/1 ML VIAL IV PRN (13:54)
[2018-11-11] MEDS ORDERED: MEASLES,MUMPS&RUBELLA VACC/PF 0.5 ML VIAL SUBCUT PRN (13:54)
[2018-11-11] MEDS ORDERED: SIMETHICONE 80 MG TAB.CHEW PO PRN (13:54)
[2018-11-11] MEDS ORDERED: OXYCODONE-ACETAMINOPHEN 5-325 MG TABLET PO PRN (13:54)
[2018-11-11] MEDS ORDERED: MORPHINE SULFATE 10 MG/ML INJ IV PRN (13:54)
[2018-11-11] MEDS ORDERED: ACETAMINOPHEN 1,000 MG/100 ML RTUPB IV PRN (13:54)
[2018-11-11] MEDS ORDERED: DIPH/PERTUSS(ACELL)/TETANUS VAC/PF 0.5 ML SYR (>=10YO) IM PRN (13:54)
--- NOTE | 2018-11-11 14:02 | Operative Report ---
Operative Report DATE OF SURGERY: 11/11/18 PREOPERATIVE DIAGNOSIS: IUP @ 40 wks, mentum posterior face presentation, undes ired fertility POSTOPERATIVE DIAGNOSIS: same OPERATION: section and [place] tubal ligation SURGEON: JAMI ZARATE ANESTHESIA: Epidural TISSUE REMOVED OR ALTERED: Bilateral fallopian tube segments COMPLICATIONS: None ESTIMATED BLOOD LOSS: 500 cc INTRAOPERATIVE FINDINGS: Male infant cephalic presentation mentum posterior Apgars of 8 and 9 weight 8 pounds 14 ounces normal uterus tubes and ovaries PROCEDURE: PROCEDURE IN DETAIL: The patient was taken to the operating room, prepared and draped in a normal sterile fashion in a supine position with a leftward tilt. A transverse skin incision was made with a scalpel and carried through to the underlying layer of fascia with the same scalpel. The fascia was excised in the midline and extended laterally with Brandon. The fascia was then dissected from the rectus muscle sharply with Brandon and the rectus muscle was divided and the peritoneal cavity was entered sharply with the same Metzenbaum. With good visualization of the bladder and the uterus the bladder blade was inserted. The hysterotomy was nicked with a scalpel and extended laterally with surgeon finger fraction. The infant was then delivered atraumatically. The nose and mouth were suctioned with a suction bulb, the cord was clamped and cut and handed off to awaiting pediatricians. Cord blood was collected. The placenta was removed manually. The uterus was exteriorized and cleared of clots and debris. The hysterotomy was closed with 0 Monocryl in a running, locked fashion. A second layer of the same suture was used to imbricate to ensure hemostasis. Attention was then turned to the fallopian tubes with the right fallopian tube was grasped with a Halie mesosalpinx was divided and a large 3- 1/2 cm segment of fallopian tube was tied off with 2 pieces of 2-0 chromic . The intermediate section was removed with Metzenbaums and the pedicles were made hemostatic with the Bovie. this procedure was then repeated on the left fallopian tube. the uterus was returned to the abdomen and peritoneal cavity was cleared of clots and debris. The rectus muscle and peritoneum were repaired with mattress stitch of 2-0 Chromic. The fascia was closed with 0-Vicryl. The subcutaneous layer was closed with plain catgut and the skin was closed with 4-0 Vicryl. The patient tolerated the procedure well. Sponge, lap, and needle counts correct x2 and the patient was taken to recovery in stable condition.
[2018-11-11] MEDS ORDERED: ACETAMINOPHEN 1,000 MG/100 ML RTUPB IV ONE (14:13)
[2018-11-11] MEDS ORDERED: KETOROLAC TROMETHAMINE INJ/PF 30 MG/1 ML SDV ONE (14:45)
[2018-11-11] MEDS: KETOROLAC TROMETHAMINE INJ/PF 30 MG/1 ML SDV IV SCH ×2 (14:46→21:13)
--- NOTE | 2018-11-11 15:04 | Warning Signs in Babies ---
VOD Warning Signs Datetime Report Generated by [facility]: 11/11/2018 15:04 VOD#608 -Warning Signs in Babies: Needs to be viewed. (11/05/2018 16:15:Lizette Barragan RN)
[2018-11-11] MEDS ORDERED: PROMETHAZINE HCL INJ 25 MG/1 ML VIAL ONE (15:59)
--- NOTE | 2018-11-11 16:37 | Delivery Summary ---
Del Sum A-C Datetime Report Generated by CPN: 11/11/2018 16:37 DELIVERY PERSONNEL DELIVERY PERSONNEL: [id number] Delivery Doctor:: Lexis Terry MD Anesthesiologist:: Leandra Huggins MD SET UP INSPECTOR:: Harrison Pantoja CRNA Labor and Delivery Nurse:: Lucia Hutton RNgirls swimming coach Nurse:: Lizette Barragan RN Packager Hand:: Lucia Hutton RN Neonatal Nurse Practitioner:: VERN Snyder Nursery Nurse:: Annel Aguilar RN Credit Risk Officer/BRASS CUTTER: [facility] Esther Credit Risk Officer/BRASS CUTTER: Armand Joel CST Additional Personnel: : Jesus Monreal CHEF KITCHEN MANAGER MATERNAL INFORMATION Delivery Anesthesia: Epidural Medications After Delivery: Pitocin Bolus-Please Comment Delivery QBL: [id number] Maternal Complications: None LABOR SUMMARY EDC: 11/11/2018 00:00 No. Babies in Womb: 1 Attempted: No Labor Anesthesia: Epidural LABOR INFORMATION Reason for Induction: Postterm Onset of Labor: 11/11/2018 10:00 Group B Beta Strep: Negative Antibiotics # of Doses: 1 Antibiotics Time of Last Dose: 1258 Name of Antibiotic Given: Azithromax MEMBRANES Membranes Rupture Method: Artificial Rupture of Membranes: 11/11/2018 11:15 Length of Rupture (hr): 1.95 Amniotic Fluid Color: Clear Amniotic Fluid Amount: Small Amniotic Fluid Odor: Normal STAGES OF LABOR Stage 3 hr: 0 Stage 3 min: 2 Total Time in Labor hr: 3 Total Time in Labor min: 14 VAGINAL DELIVERY Episiotomy: None Laceration #1: None Laceration Extension #1: N/A Laceration Repair: Not Applicable Sponge Count Correct: N/A Sharps Count Correct: N/A CSECTION DELIVERY Primary Indication: Transverse/Complex Presentation Other Primary Indication: face (mental) presentation CSection Urgency: Non-Scheduled CSection Incidence: Primary Labor: Labor Elective: Nonelective CSection Incision: Lower Uterine Transverse Sterilization Procedure: Disputanta BABY A INFORMATION Infant Delivery Date/Time: 11/11/2018 13:12 Method of Delivery: Born in Route : No : N/A Forceps: N/A Vacuum Extraction: N/A Shoulder Dystocia : No PRESENTATION/POSITION BABY A Presentation: Cephalic Cephalic Presentation: Face Vertex Position: Left Mentum Anterior Breech Presentation: N/A PLACENTA INFORMATION BABY A Placenta Delivery Time : 11/11/2018 13:14 Placenta Method of Delivery: Manual Removal Placenta Status: Delivered SCORES BABY A Heart Rate 1 min: >100 bpm Resp Effort 1 min: Good Cry Reflex Irritability 1 min: Cough or Sneeze or Pulls Away Muscle Tone 1 min: Active Motion Color 1 min: Body [place], Extremities Blue Resuscitation Effort 1 min: Tactile Stimulation SCORE 1 MIN: 9 Heart Rate 5 min: >100 bpm Resp Effort 5 min: Good Cry Reflex Irritability 5 min: Cough or Sneeze or Pulls Away Muscle Tone 5 min: Active Motion Color 5 min: Body [place], Extremities Blue Resuscitation Effort 5 min: Tactile Stimulation SCORE 5 MIN: 9 INFANT INFORMATION BABY A Gestational Age at Delivery: 40.0 Gestational Status: Full Term- 39- 40.6 Weeks Outcome : Liveborn Condition : Stable Infant Sex: Male IDENTIFICATION BABY A Infant Verification Date/Time: 11/11/2018 13:20 ID Band Number: [id number] Mother's Name Verified: Yes RN Verifying Infant: C. Anni RN B. Barragan RN WEIGHT/LENGTH BABY A Infant Birthweight (gm): 4015 Weight (lb): 8 Weight (oz): 14 Length (in): 20.00 Infant Length (cm): 50.80 CORD INFORMATION BABY A No. Cord Vessels: 3 Nuchal Cord : N/A Cord Blood Taken: Yes-For Storage (Mom's Blood type +) Suction: None ASSESSMENT BABY A Infant Complications: None Physical Findings at Delivery: Within Normal Limits Skin to Skin: Yes Inspector Eyeglass/ALS Called : Yes Infant Care By: Annel Aguilar RN, Breanna Kimball RN Transferred To: [facility] BABY B INFORMATION : N/A
[2018-11-11] MEDS: DOCUSATE SODIUM 100 MG CAPSULE PO SCH (17:20)
[2018-11-11] MEDS: OXYCODONE-ACETAMINOPHEN 5-325 MG TABLET PO PRN (17:25)
[2018-11-11] MEDS ORDERED: KETOROLAC TROMETHAMINE INJ/PF 30 MG/1 ML SDV IV SCH (22:00)
[2018-11-12] MEDS: OXYCODONE-ACETAMINOPHEN 5-325 MG TABLET PO PRN (04:03)
[2018-11-12] MEDS: KETOROLAC TROMETHAMINE INJ/PF 30 MG/1 ML SDV IV SCH (05:40)
[2018-11-12] MEDS ORDERED: IBUPROFEN 800 MG TABLET PO SCH (06:00)
[2018-11-12 06:42] LABS: HEMATOCRIT 34.8 % (36.0-47.0); HEMOGLOBIN 11.5 g/dL (12.0-15.5); MEAN CORPUSCULAR HEMOGLOBIN 30.2 pg (27.0-33.4); MEAN CORPUSCULAR VOLUME 91 fl (80-97); PLATELET COUNT 176 10^3/uL (150-450); RED CELL DISTRIBUTION WIDTH 13.6 % (11.5-14.0); WHITE BLOOD COUNT 12.7 10^3/uL (4.0-10.5)
--- NOTE | 2018-11-12 09:10 | PDOC PROGRESS REPORT ---
Subjective-OB Progress Note for:: 11/12/18 - POD#1, s/p Primary c/s due to face presentation during labor. pt doing well, no complaints, A+ Rubella Immune, Physical Exam (OB) Vital Signs: Temp Pulse Resp BP Pulse Ox 98.5 F 77 20 102/62 98 11/12/18 07:22 11/12/18 07:22 11/12/18 03:59 11/12/18 07:22 11/12/18 07:22 Intake & Output 11/11/18 11/12/18 11/13/18 06:59 06:59 06:59 Intake Total 200 Output Total 1950 Balance -1750 Weight 75.7 kg - General General Appearance: Appears well, Alert In distress: None - PIH/Pre-Eclampsia Clonus: Negative Headache: Absent Epigastric Pain: No Visual Changes: No - Dressing Removed: No - opsite dressing D&I Incision: Well Approximated - Lochia Lochia Amount: Scant < 10 ml Lochia Color: Rubra/Red - Abdomen Description: Tender, Soft Hernia Present: No Fundal Description: Firm, Midline Fundal Height: u/u - u/2 - Respiratory Respiratory Status: No respiratory distress Breath sounds: Clear - Cardiovascular Rhythm: Regular Heart Sounds: Normal auscultation - Abdominal Inspection: Normal Abdominal Notes: +bowel sounds - Genitourinary Genitourinary Note: voiding - Extremities Upper extremity: Normal inspection Lower extremities: Normal inspection - Neurological Cognition: Normal Orientation: AAOx4 - Psychological Associated symptoms: Normal affect, Normal mood - Skin Skin Temperature: Warm Skin Moisture: Dry Objective-Diagnostic Laboratory: 11/12/18 05:56 11/12/18 05:56 WBC 12.7 H RBC 3.80 Hgb 11.5 L Hct 34.8 L MCV 91 MCH 30.2 MCHC 33.0 RDW 13.6 Plt Count 176 Assessment and Plan(PN) - Assessment and Plan (1) Face presentation of fetus Qualifiers: Fetus number: single or unspecified fetus Qualified Code(s): O32.3XX0 - Ma ternal care for face, brow and chin presentation, not applicable or unspecified Is this a current diagnosis for this admission?: Yes (2) S/P primary low transverse Is this a current diagnosis for this admission?: Yes (3) Acute blood loss anemia Is this a current diagnosis for this admission?: Yes - Time Spent with Patient Time with patient: Less than 15 minutes Medications reviewed and adjusted accordingly: Yes - Disposition Anticipated Discharge: Home Within: within 48 hours
[2018-11-12] MEDS: DOCUSATE SODIUM 100 MG CAPSULE PO SCH ×2 (11:02→17:22)
[2018-11-12] MEDS: IBUPROFEN 800 MG TABLET PO SCH ×3 (11:02→23:29)
[2018-11-12] MEDS: PRENATAL VITAMIN W DHA CAPSULE PO SCH (11:02)
[2018-11-13 00:55] VITALS: BP 109/68
[2018-11-13] MEDS: IBUPROFEN 800 MG TABLET PO SCH ×2 (05:01→11:36)
--- NOTE | 2018-11-13 08:52 | PDOC PROGRESS REPORT ---
Subjective-OB Progress Note for:: 11/13/18 Subjective: Ready for discharge. Physical Exam (OB) Vital Signs: Temp Pulse Resp BP Pulse Ox 98.8 F 78 18 109/68 100 11/13/18 00:00 11/13/18 00:00 11/13/18 00:00 11/13/18 00:00 11/13/18 00:00 Intake & Output 11/12/18 11/13/18 11/14/18 06:59 06:59 06:59 Intake Total 200 Output Total 1950 Balance -1750 Weight 75.7 kg - PIH/Pre-Eclampsia Clonus: Negative Headache: Absent Epigastric Pain: No Visual Changes: No - Dressing Removed: No - optsite with scant shadow drainage intact Incision: Dressing - Lochia Lochia Amount: Scant < 10 ml Lochia Color: Serosa/Brown - Abdomen Description: Soft, Round Hernia Present: No Bowel Sounds: Normoactive Flatus Presence: Present Stool: No Fundal Description: Firm, Midline Fundal Height: u/u - u/2 Objective-Diagnostic Laboratory: 11/12/18 05:56 Assessment and Plan(PN) - Time Spent with Patient Medications reviewed and adjusted accordingly: Yes - Disposition Anticipated Discharge: Home
--- NOTE | 2018-11-13 08:58 | PDOC DISCHARGE SUMMARY ---
Final Diagnosis Discharge Date: 11/13/18 - Final Diagnosis (1) Face presentation of fetus Is this a current diagnosis for this admission?: Yes (2) Is this a current diagnosis for this admission?: Yes (3) S/P primary low transverse Is this a current diagnosis for this admission?: Yes (4) Undesired fertility Is this a current diagnosis for this admission?: Yes Discharge Data - Discharge Medication Prescriptions: Oxycodone HCl/Acetaminophen [Percocet 5-325 mg Tablet] 1 tab PO Q4HP PRN #20 tablet PRN Reason: Docusate Sodium [Colace 100 mg Capsule] 100 mg PO BID #30 capsule Ibuprofen [Motrin 800 mg Tablet] 800 mg PO Q6 #30 tablet Home Medications: Pnv No.95/Ferrous Fum/Folic AC [ Multivitamin Tablet] 1 each PO DAILY 04/24/17 Omeprazole Magnesium [Prilosec Otc] 20 mg PO DAILY 11/05/18 Docusate Sodium [Colace 100 mg Capsule] 100 mg PO BID #30 capsule 11/13/18 Ibuprofen [Motrin 800 mg Tablet] 800 mg PO Q6 #30 tablet 11/13/18 Oxycodone HCl/Acetaminophen [Percocet 5-325 mg Tablet] 1 tab PO Q4HP PRN #20 tablet 11/13/18 Gestational Age: 40 wks Reason(s) for Admission: Induction of Labor Procedures: Ultrasound Intrapartum Procedure(s): : Low Cervical, Transverse - [place] Data Baby 1 Male at 1 minute: 9 at 5 minutes: 9 Weight: 4.026 kg Home with Mother: Yes Complications: No - Diagnosis Test Laboratory: Temp Pulse Resp BP Pulse Ox 98.8 F 78 18 109/68 100 11/13/18 00:00 11/13/18 00:00 11/13/18 00:00 11/13/18 00:00 11/13/18 00:00 11/11/18 11/11/18 11/12/18 07:00 08:03 05:56 RBC 3.89 3.80 Hgb 11.8 L 11.5 L Hct 35.4 L 34.8 L Urine Opiates Screen NEGATIVE - Discharge information/Instructions Discharge Activity: Activity As Tolerated, Balance Activity w/Rest, No Lifting Over 10 Pounds, No Lifting/Push/Pulling, Non-Ambulatory Child, Pelvic Rest, Slowly Increase Activity, No tub bath Discharge Diet: Regular Disposition: HOME, SELF-CARE Follow up with: [facility] in: 1, Weeks
[2018-11-13] MEDS: PRENATAL VITAMIN W DHA CAPSULE PO SCH (09:04)
[2018-11-13] MEDS: DOCUSATE SODIUM 100 MG CAPSULE PO SCH (09:04)
== END 2018-11-13 12:24 | disposition home or self-care (01) | DRG 785 ==
LOC: LR 06:50 → 2S 16:05
PROVIDERS: ADMIT Obstetrics & Gynecology; ATTEND Obstetrics & Gynecology
PROC: 10D00Z1 Extraction of Products of Conception, Low, Open Approach (ICD-10-PCS; principal; 2018-11-11)
PROC: 0U570ZZ Destruction of Bilateral Fallopian Tubes, Open Approach (ICD-10-PCS; 2018-11-11)
PROC: 10907ZC Drainage of Amniotic Fluid, Therapeutic from Products of Conception, Via Natural or Artificial Opening (ICD-10-PCS; 2018-11-11)
DX: O48.0 Post-term pregnancy (principal); O32.3XX0 Maternal care for face, brow and chin presentation, not applicable or unspecified; O99.013 Anemia complicating pregnancy, third trimester; Z3A.40 40 weeks gestation of pregnancy; Z37.0 Single live birth; Z30.2 Encounter for sterilization; Z88.1 Allergy status to other antibiotic agents
CPT/HCPCS: 1961; 36415; 80307; 81005; 85025; 85027; 86592; 86850; 86900; 86901; 88302; 94799; J0131; J0456; J1885; J2250; J2270; J2370; J2405; J2550; J2590; J3010; J3490

== ENCOUNTER → 2020-03-01 | Outpatient (CLI) | payer BC ==
--- NOTE | 2020-03-01 10:21 | ER [facility] ASSESSMENT REPORT ---
Intake - In the Last 14 days Have you traveled outside [place]?: No Have you been in close contact with someone CONFIRMED: Yes Worked in Healthcare?: Yes - Symptoms Subjective Fever([place] feverish): No Chills: No Muscule Aches: Yes Runny Nose: Yes Sore Throat: No Cough (New or worsening chronic cough): Yes Shortness of breath: No Nausea or Vomiting: No Headache: No Abdominal Pain: No Diarrhea(3 or more loose stools in last 24 hours): No - Do you have any of the following Chronic lung disease: Asthma or emphysema or COPD: No Cystic Fibrosis: No Diabetes: No High Blood Pressure: No Cardiovascular Disease: No Chronic Kidney Disease: No Chronic Liver Disease: No Chronic blood disorder like Sickle Cell Disease: No Weak immune system due to disease or medication: No Neurologic condition that limits movement: No Developmental delay - Moderate to Severe: No Recent (within past 2 weeks) or current : No Morbid Obesity (>100 pounds over ideal weight): No - Objective Temperature: 98.3 F Pulse Rate: 79 Respiratory Rate: 18 Blood Pressure: 107/65 O2 Sat by Pulse Oximetry: 97 Objective: Given above, testing performed: If Testing Performed: Test Specimen Type Sent to General - General Information source: Patient Notes: Patient presents to the [facility] for screening for the coronavirus. 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 Patient reports body aches, congestion and cough. - Related Data Allergies/Adverse Reactions: cefaclor [From Ceclor] Adverse Reaction (Verified 11/11/18 07:50) Hives Past Medical History - General Information source: Patient - Social History Family History: Reviewed & Not Pertinent - Medical History Medical History: Negative Past Surgical History: Reports: Hx Section Physical Exam - Notes Notes: The patient was evaluated during the global Covid 19 pandemic, and that diagnosis was suspected/considered upon their initial presentation. Their evaluation, treatment and testing was consistent with current guidelines for patients who present with complaints or symptoms that may be related to Covid 19. Full physical exam could not be performed due to covid 19 isolation protocols. Constitutional: Nontoxic appearance, no acute distress Eyes: Nonicteric, extraocular movements intact, sclera clear ENT: Posterior pharynx without exudates Cardiovascular: Heart rate and rhythm regular, no JVD Respiratory: Nonlabored breathing, no use of accessory muscles, no tachypnea Gastrointestinal: Abdomen not distended Muculoskeletal: Moves all extremities well Skin: Normal color Neuro: Awake alert oriented, normal speech Psych: Normal mood and affect Diagnostic Results Laboratory Results: Patient presents with symptoms worrisome for possible Covid 19. Patient does not have emergency worrying symptoms such as difficulty breathing, shortness of breath, chest pain, pressure, confusion or cyanosis. Patient appears suitable for discharge as they are not of an advanced age, do not have any chronic medical conditions such as diabetes, CAD, immune deficiency, chronic lung disease or chronic kidney disease. Patient's vital signs are stable and patient is nontoxic in appearance. Good return precautions have been discussed with patient, patient verbalized understanding and is agreeable with discharge plan of care at this time. Patient Education/Counseling Counseling/Education: Patient was provided with discharge information including: As a person under investigation for Covid 19, the [facility], division of public health advises you to adhere to the following guidance until your test results are reported to you. If your test result is positive, you will receive additional information from your provider and your local health department at that time. Remain at home until you are cleared by the health provider or public health authorities. Keep a log of visitors to your home, notify any visitors to your home of your isolation status. If you plan to move to a new address or leave the county, notify the local health department in your County. Call your doctor or seek care if you have an urgent medical need. Before seekin g medical care, call ahead to get instructions from the provider before arriving at the medical office clinic or hospital. Notify them that you are being tested for the virus that causes Covid 19 so that arrangements can be made, as necessary, to prevent transmission to others in the healthcare setting. Next, notify the local health department in your county. If a medical emergency arises and you need to call 911, inform the first responders that you are being tested for the virus that causes Covid 19. Next, notify the local health department in your county. [facility] Discharge - Discharge Clinical Impression: Encounter for screening laboratory testing for COVID-19 virus Condition: Stable Disposition: Home; Selfcare
[2020-03-01 10:22] VITALS: BP 107/65
[2020-03-01 16:33] LABS: A TYPE INFLUENZA AG NEGATIVE (NEGATIVE)
[2020-03-01 16:34] LABS: B INFLUENZA AG NEGATIVE (NEGATIVE)
== END ==
LOC: RDC 09:27
PROVIDERS: ATTEND Nurse Practitioner Family
DX: U07.1 COVID-19 (principal)
CPT/HCPCS: 87070; 87880; 87804; 99201; 99211; U0003; C9803; 87635